=== PATIENT | female | born 1960 | race Caucasian/White ===

== ENCOUNTER → 2017-12-10 | Outpatient (CLI) | payer MEDICARE ==
--- NOTE | 2017-12-10 14:10 | RADIOLOGY REPORT (SQ) ---
EXAM DESCRIPTION: BARIUM SWALLOW ESOPHAGUS COMPLETED DATE/TIME: 12/10/2017 9:00 am REASON FOR STUDY: BARIATRIC SURGERY STATUS Z98.84 BARIATRIC SURGERY STATUS COMPARISON: None. TECHNIQUE: Under fluoroscopic guidance, patient ingested Gastrografin. Fluoroscopic spot images and routine radiographic images acquired and stored on PACS. 12 MM BARIUM TABLET GIVEN: No LIMITATIONS: None. FLUOROSCOPY TIME: 2.2 minutes 31 digital images saved to PACS. FINDINGS: NEUROMUSCULAR COORDINATION OF SWALLOW: Normal. No aspiration. ESOPHAGEAL MOTILITY: Normal peristalsis. No esophageal spasm. Mildly dilated esophagus throughout, w ith retained food in the distal esophagus/hiatal hernia. ESOPHAGEAL MUCOSA: Normal mucosa without masses or ulceration. GASTRO-ESOPHAGEAL JUNCTION: There is a moderate-sized hiatal hernia present between the gastroesophag eal junction and the lap band. Hiatal Hernia measures about 8 to 10 cm in diameter. There is retain ed food in the distal esophagus/hiatal hernia. Narrow passage through the lap band into a decompress ed stomach. NON-GI TRACT STRUCTURES: No significant finding. OTHER: No other significant finding. IMPRESSION: There is a moderate-sized hiatal hernia present between the gastroesophageal junction an d the lap band. Hiatal Hernia measures about 8 to 10 cm in diameter. There is retained food in the distal esophagus/hiatal hernia. Narrow passage through the lap band into a decompressed stomach. COMMENT: Quality ID 145: Final reports for procedures using fluoroscopy that document radiation exp osure indices, or exposure time and number of fluorographic images (if radiation exposure indices are not available) TECHNICAL DOCUMENTATION: JOB ID: [id number] [employer]- All Rights Reserved Reading location - IP/workstation name: [facility]
== END ==
LOC: RAD 08:15
PROVIDERS: ATTEND Surgery
DX: K44.9 Diaphragmatic hernia without obstruction or gangrene (principal); Z98.84 Bariatric surgery status
CPT/HCPCS: 74220

== ENCOUNTER → 2019-11-24 | Outpatient (CLI) | payer MEDICAID, MEDICARE ==
--- NOTE | 2019-11-24 15:55 | RADIOLOGY REPORT (SQ) ---
EXAM DESCRIPTION: SMALL BOWEL SERIES IMAGES COMPLETED DATE/TIME: 11/24/2019 10:51 am REASON FOR STUDY: IRON DEFICIENCY ANEMIA D50.9 IRON DEFICIENCY ANEMIA, UNSPECIFIED COMPARISON: None. FLUOROSCOPY TIME: 33 seconds 5 images saved to PACS. LIMITATIONS: None. PROCEDURE: Initial pharm tech image of abdomen acquired, followed by administration of oral contrast. Se rial radiographic images acquired. Fluoroscopic images recorded of the terminal ileum and other everton cated areas. All images stored on PACS. FINDINGS: BACK HOE MACHINE OPERATOR KUB: Non-obstructive bowel pattern. No abnormal calcifications. Soft tissue planes normal. STOMACH: Gastric band is present. Significant gastroesophageal reflux is seen. Normal distention of the stomach without abnormality. DUODENUM: Normal mucosal pattern with adequate distention. No displacement or obstruction. JEJUNUM: Normal mucosal pattern. No dilatation, segmentation, strictures or masses. ILEUM: Normal mucosal pattern. No dilatation, segmentation, strictures or masses. Near the end of t he study, there are several images of nondistended loops of small bowel, however, earlier images show normal distension. TERMINAL ILEUM AND ILEO-CECAL VALVE: Normal mucosal pattern without "cobble-stoning" or stricture. N ormal compression. PROXIMAL COLON: Incompletely imaged. No abnormality. OTHER: No other significant finding. IMPRESSION: NORMAL SMALL BOWEL EXAM. GASTRIC BAND PRESENT WITH SIGNIFICANT GASTROESOPHAGEAL REFLUX. COMMENT: None Quality ID [id number]: Final reports for procedures using fluoroscopy that document radiation exposure everton karthik, or exposure time and number of fluorographic images (if radiation exposure indices are not avail able) TECHNICAL DOCUMENTATION: JOB ID: [id number] [email or web address]- All Rights Reserved Reading location - IP/workstation name: [email or web address] [id number]
== END ==
LOC: RAD 08:20
PROVIDERS: ATTEND Internal Medicine Gastroenterology
DX: D50.9 Iron deficiency anemia, unspecified (principal); K21.9 Gastro-esophageal reflux disease without esophagitis
CPT/HCPCS: 74250